=== PATIENT | male | born 1960 | race Caucasian/White ===

== ENCOUNTER 2016-10-09 22:01 | Emergency (ER) | payer BC ==
[~2016-10-09] VITALS: Ht 177.8 cm; Wt 90.9 kg
[~2016-10-09 22:01] MED LIST: AMOXICILLIN875 MG PO; AUGMENTIN875TAB OR; AUGMENTIN875TAB PO; BENZONATATE200 MG PO; CORTISPORIN OTI10 ML AS; FLONASE NASAL50 MCG; FLONASE SPRAY50 MC1; MEDDOSEPAK PO; PENICILLN VK500 MG PO; PROAIR HFA IN; ROBITUSSIN AC10 ML PO
[2016-10-10] MEDS ORDERED: AUGMENTIN875TAB PO (02:09)
[2016-10-10] MEDS ORDERED: PERCOCET 5/325M1 TAB PO (02:09)
[2016-10-10 03:08] VITALS: BP 132/80
== END 2016-10-10 03:09 | disposition home or self-care (01) | DRG 605 ==
LOC: ED 22:01
DX: S61.234A Puncture wound without foreign body of right ring finger without damage to nail, initial encounter (principal); S60.512A Abrasion of left hand, initial encounter; W54.0XXA Bitten by dog, initial encounter